=== PATIENT | male | born 1970 | race Caucasian/White ===

== ENCOUNTER 2017-12-11 18:39 | Emergency (ER) | payer SELFPAY ==
--- NOTE | 2017-12-11 18:55 | EDM.PDOC ---
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 Review of systems: As per history of present illness and below otherwise all systems reviewed and negative. Past medical history: As per history of present illness and as reviewed below otherwise noncontributory. Surgical history: As per history of present illness and as reviewed below otherwise noncontributory. Social history: No reported history of drug or alcohol abuse. Family history: As per history of present illness and as reviewed below otherwise noncontributory. Physical exam: HEENT: Atraumatic, normocephalic, pupils reactive, negative for conjunctival pallor or scleral icterus, mucous membranes dry, throat clear, neck supple, nontender, trachea midline. Lungs: Clear to auscultation, breath sounds equal bilaterally, chest nontender. Heart: S1S2, regular, negative for clicks, rubs, or JVD. Abdomen: Soft, nondistended, nontender. Negative for masses or hepatosplenomegaly. Negative for costovertebral tenderness. Pelvis: Stable nontender. Genitourinary: Deferred. Rectal: Deferred. Extremities: Atraumatic, negative for cords or calf pain. Neurovascular unremarkable. Neuro: Awake, alert, oriented. Cranial nerves II through XII unremarkable. Cerebellum unremarkable. Motor and sensory unremarkable throughout. Exam nonfocal. Diagnostics: CBC CMP troponin PT/INR EKG chest x-ray CT brain UA Therapeutics: Saline 1 L bolus Impression: #1 near-syncope #2 cephalgia Definitive disposition and diagnosis as appropriate pending reevaluation and review of above. headache Pain Score (Numeric/FACES): 4 - Related Data Allergies Allergy/AdvReac Type Severity Reaction Status Date / Time No Known Allergies Allergy Verified 12/11/17 18:43 Home Meds: Home Meds . [No Known Home Meds] 12/11/17 [History] Past Medical History - Infectious Disease History Infectious Disease History: Reports: Rubella - Past Surgical History HEENT Surgical History: Reports: Naso-Sinus Surgery Social & Family History - Family History Family Medical History: Noncontributory - Tobacco Use Smoking Status *Q: Former Smoker Used Tobacco, but Quit: Yes Month/Year Tobacco Last Used: 6 years ago - Caffeine Use Caffeine Use: Reports: Coffee - Recreational Drug Use Recreational Drug Use: No ED ROS GENERAL - Review of Systems Review Of Systems: ROS reveals no pertinent complaints other than HPI. ED EXAM, GENERAL - Physical Exam Exam: See Below (See dictation) Course - Vital Signs Last Recorded V/S: Last Vital Signs Temp 36.6 C 12/11/17 18:44 Pulse 69 12/11/17 19:32 Resp 17 12/11/17 19:32 BP 125/76 12/11/17 19:32 Pulse Ox 99 12/11/17 19:32 - Orders/Labs/Meds Orders: Active Orders 24 hr Category Date Time Status Cardiac Monitoring [RC] . DIRECTED Care 12/11/17 18:56 Active EKG Documentation Completion [RC] STAT Care 12/11/17 18:56 Active Oxygen Therapy, ED [RC] ASDIRECTED Care 12/11/17 18:56 Active Pulse Oximetry [RC] ASDIRECTED Care 12/11/17 18:56 Active Chest 1V Frontal [CR] Stat Exams 12/11/17 18:58 Taken Head wo Cont [CT] Stat Exams 12/11/17 18:58 Taken CARBOXYHEMOGLOBIN [BG] Stat Lab 12/11/17 19:42 Ordered COMPREHENSIVE METABOLIC PN,CMP [CHEM] Stat Lab 12/11/17 19:15 Received TROPONIN I [CHEM] Stat Lab 12/11/17 19:15 Received UA W/MICROSCOPIC [URIN] Stat Lab 12/11/17 19:22 Ordered Sodium Chloride 0.9% [Normal Saline] 1,000 ml Med 12/11/17 18:58 Active IV STAT Sodium Chloride 0.9% [Saline Flush] Med 12/11/17 18:58 Active 10 ml FLUSH ASDIRECTED PRN Sodium Chloride 0.9% [Saline Flush] Med 12/11/17 18:58 Active 2.5 ml FLUSH ASDIRECTED PRN Saline Lock Insert [OM.PC] Stat Oth 12/11/17 18:56 Ordered Medication Orders Sodium Chloride (Normal Saline) 1,000 mls @ 999 mls/hr IV STAT ONE Stop: 12/11/17 19:58 Last Admin: 12/11/17 19:17 Dose: 999 mls/hr Sodium Chloride (Saline Flush) 10 ml FLUSH ASDIRECTED PRN PRN Reason: Keep Vein Open Last Admin: 12/11/17 19:16 Dose: 10 ml Admin: 12/11/17 19:15 Dose: 10 ml Sodium Chloride (Saline Flush) 2.5 ml FLUSH ASDIRECTED PRN PRN Reason: Keep Vein Open Last Admin: 12/11/17 19:16 Dose: 2.5 ml Labs: Laboratory Tests 12/11/17 12/11/17 Range/Units 19:15 19:15 WBC 6.60 (4.0-11.0) K/uL RBC 5.26 (4.50-5.90) M/uL Hgb 17.5 H (13.0-17.0) g/dL Hct 47.7 (38.0-50.0) % MCV 90.7 (80.0-98.0) fL MCH 33.3 H (27.0-32.0) pg MCHC 36.7 (31.0-37.0) g/dL RDW Std Deviation 44.1 (28.0-62.0) fl RDW Coeff of Sydnie 14 (11.0-15.0) % Plt Count 149 L (150-400) K/uL MPV 11.30 (7.40-12.00) fL Neut % (Auto) 48.6 (48.0-80.0) % Lymph % (Auto) 40.8 H (16.0-40.0) % Greene % (Auto) 8.9 (0.0-15.0) % Eos % (Auto) 1.5 (0.0-7.0) % Baso % (Auto) 0.2 (0.0-1.5) % Neut # (Auto) 3.2 (1.4-5.7) K/uL Lymph # (Auto) 2.7 H (0.6-2.4) K/uL Greene # (Auto) 0.6 (0.0-0.8) K/uL Eos # (Auto) 0.1 (0.0-0.7) K/uL Baso # (Auto) 0.0 (0.0-0.1) K/uL Nucleated RBC % 0.0 /100WBC Nucleated RBCs # 0 K/uL INR 1.07 Meds: Medications Generic Name Dose Route Start Last Admin Trade Name Freq PRN Reason Stop Dose Admin Sodium Chloride 1,000 mls @ 999 mls/hr 12/11/17 18:58 12/11/17 19:17 Normal Saline IV 12/11/17 19:58 999 mls/hr STAT ONE Administration Sodium Chloride 10 ml 12/11/17 18:58 12/11/17 19:16 Saline Flush FLUSH 10 ml ASDIRECTED PRN Administration Keep Vein Open Sodium Chloride 2.5 ml 12/11/17 18:58 12/11/17 19:16 Saline Flush FLUSH 2.5 ml ASDIRECTED PRN Administration Keep Vein Open Departure - Departure Time of Disposition: 19:43 Disposition: Home, Self-Care 01 Condition: Good Clinical Impression: Near syncope, Dehydration - Discharge Information Referrals: PCP,None [Primary Care Provider] - Forms: ED Department Discharge Additional Instructions: The following information is given to patients seen in the emergency department who are being discharged to home. This information is to outline your options for follow-up care. We provide all patients seen in our emergency department with a follow-up referral. The need for follow-up, as well as the timing and circumstances, are variable depending upon the specifics of your emergency department visit. If you don't have a primary care physician on staff, we will provide you with a referral. We always advise you to contact your personal physician following an emergency department visit to inform them of the circumstance of the visit and for follow-up with them and/or the need for any referrals to a consulting specialist. The emergency department will also refer you to a specialist when appropriate. This referral assures that you have the opportunity for followup care with a specialist. All of these measure are taken in an effort to provide you with optimal care, which includes your followup. Under all circumstances we always encourage you to contact your private physician who remains a resource for coordinating your care. When calling for followup care, please make the office aware that this follow-up is from your recent emergency room visit. If for any reason you are refused follow-up, please contact the [facility] emergency department at and asked to speak to the emergency department charge nurse. [facility] [address] [place] [id number] Push fluids follow-up primary medical doctor and/or clinical follow-up: Schedule appointment return as needed as discussed - My Orders Last 24 Hours: My Active Orders 12/11/17 18:56 Cardiac Monitoring [RC] . DIRECTED EKG Documentation Completion [RC] STAT Oxygen Therapy, ED [RC] ASDIRECTED Pulse Oximetry [RC] ASDIRECTED Saline Lock Insert [OM.PC] Stat 12/11/17 18:58 Chest 1V Frontal [CR] Stat Head wo Cont [CT] Stat Sodium Chloride 0.9% [Normal Saline] 1,000 ml IV STAT Sodium Chloride 0.9% [Saline Flush] 10 ml FLUSH ASDIRECTED PRN Sodium Chloride 0.9% [Saline Flush] 2.5 ml FLUSH ASDIRECTED PRN 12/11/17 19:15 COMPREHENSIVE METABOLIC PN,CMP [CHEM] Stat TROPONIN I [CHEM] Stat 12/11/17 19:22 UA W/MICROSCOPIC [URIN] Stat 12/11/17 19:42 CARBOXYHEMOGLOBIN [BG] Stat - Assessment/Plan Last 24 Hours: My Active Orders 12/11/17 18:56 Cardiac Monitoring [RC] . DIRECTED EKG Documentation Completion [RC] STAT Oxygen Therapy, ED [RC] ASDIRECTED Pulse Oximetry [RC] ASDIRECTED Saline Lock Insert [OM.PC] Stat 12/11/17 18:58 Chest 1V Frontal [CR] Stat Head wo Cont [CT] Stat Sodium Chloride 0.9% [Normal Saline] 1,000 ml IV STAT Sodium Chloride 0.9% [Saline Flush] 10 ml FLUSH ASDIRECTED PRN Sodium Chloride 0.9% [Saline Flush] 2.5 ml FLUSH ASDIRECTED PRN 12/11/17 19:15 COMPREHENSIVE METABOLIC PN,CMP [CHEM] Stat TROPONIN I [CHEM] Stat 12/11/17 19:22 UA W/MICROSCOPIC [URIN] Stat 12/11/17 19:42 CARBOXYHEMOGLOBIN [BG] Stat
[2017-12-11] MEDS ORDERED: Sodium Chloride 0.9% 1,000 ML IV ONE (18:58)
[2017-12-11] MEDS ORDERED: Sodium Chloride 0.9% 2.5 ML Syringe FLUSH PRN (18:58)
[2017-12-11] MEDS: Sodium Chloride 0.9% 10 ML Syringe FLUSH PRN ×2 (19:15→19:16)
[2017-12-11 19:53] LABS: CHLORIDE,CL 104 mmol/L (98-107); SODIUM,NA 138 mmol/L (136-148)
--- NOTE | 2017-12-12 09:40 | CT ---
EXAM DATE: 12/11/17 PATIENT'S AGE: 47 Patient: HANNY VITAL Facility: [place], [place] Site . Site : 1970 Study: CT Head [id number]/28/2018 7:28:22 PM Ordering Physician: Christiano Munroe Final Report: HISTORY: Dizziness x1 day. TECHNIQUE: The head was scanned in the axial plane at 3 mm intervals without IV contrast. Reconstructed bone windows obtained as well as sagittal and coronal reconstructions. FINDINGS: There is trace mucosal thickening seen within the right maxillary sinus. Remainder of the visualized paranasal sinuses and mastoid air cells are well aerated. The calvarium is intact. The ventricles and sulci are normal size, shape and position. No intra-axial mass, edema or midline shift is identified. No extra-axial fluid collections are seen. Daniel white differentiation is preserved. IMPRESSION: No acute intracranial pathology or bleed. Dictated by Florence Sigala MD @ 12/11/2017 7:32:20 PM Dictated by: Florence Sigala MD @ 12/11/2017 19:32:36 (Electronic Signature) Report Signed by Proxy. LEISA
--- NOTE | 2017-12-12 09:41 | CR ---
EXAM DATE: 12/11/17 PATIENT'S AGE: 47 Patient: HANNY VITAL Facility: [place], [place] Site . Site : 1970 Study: XRay Chest [id number]/28/2018 7:28:54 PM Ordering Physician: Christiano Munroe Final Report: HISTORY: Dizziness x1 day. FINDINGS: AP chest radiograph demonstrates EKG leads overlying the thorax. The cardiac silhouette is normal. Pulmonary vasculature and giovanna are normal. No consolidation or pleural effusion is seen. There is a well corticated ossific density seen distal left clavicle suspicious for old fracture fragment. IMPRESSION: No acute cardiopulmonary disease. Dictated by Florence Sigala MD @ 12/11/2017 7:30:11 PM Dictated by: Florence Sigala MD @ 12/11/2017 19:30:17 (Electronic Signature) Report Signed by Proxy. [email or web address]
== END 2017-12-11 20:38 | disposition home or self-care (01) ==
LOC: MW.ED 18:39
DX: R55 Syncope and collapse (principal); E86.0 Dehydration; R51 Headache; Z87.891 Personal history of nicotine dependence
CPT/HCPCS: 36415; 70450; 71045; 80053; 81001; 84484; 85025; 85610; 96360; 99285; J7040; 99283